=== PATIENT | male | born 1980 | race American Indian/Alaskan Native ===

== ENCOUNTER 2018-07-26 09:23 | Day surgery (SDC) | payer OTHER ==
[2018-07-26] MEDS ORDERED: VERSED ONE (09:55)
[2018-07-26] MEDS ORDERED: DIPRIVAN 10 MG/ML IV ONE ×2 (09:55→10:44)
--- NOTE | 2018-07-26 09:55 | Anesthesia Day of Surgery ---
Anesthesia Day of Surgery - Day of Surgery Patient Examined: Yes Patient H&P Reviewed: Yes Patient is NPO: Yes Beta Blockers: No
--- NOTE | 2018-07-26 09:56 | Anesthesia Consultation ---
Anesthesia Consult and Med Hx Date of service: 07/26/18 - Airway Anesthetic Teeth Evaluation: Good ROM Head & Neck: Adequate Mental/Hyoid Distance: Adequate Mallampati Class: Class III Intubation Access Assessment: Possibly Difficult - Pulmonary Exam CTA: Yes - Cardiac Exam Cardiac Exam: No Murmur - Pre-Operative Health Status ASA Pre-Surgery Classification: ASA2 Proposed Anesthetic Plan: MAC - Other Systems Hx Obesity: Yes
[2018-07-26] MEDS ORDERED: NACL 0.9% 1000 ML 1,000 ML IV SCH (10:00)
--- NOTE | 2018-07-26 10:47 | Procedure Note ---
Date of procedure: 07/26/18 Pre-op diagnosis: Abdominal Pain/ Recto-Sigmoid Thickening (per CT Scan) Post-op diagnosis: other (R/O Proctitis and Colitis (of the Recto-Sigmoid area)/ S/P Colon Surgery of the Proximal Colon/ Minor, Internal Hemorrhoid) Procedure: Colonoscopy with Biopsy Anesthesia: [facility] [place] Surgeon: LEELEE SALDAÑA Estimated blood loss: minimal Pathology: list Specimen disposition: to lab Condition: stable Disposition: same day (Avoid aspirin and NSAID for 5 days and follow up in 1 to 2 weeks ([phone]). Await for the biopsy results.)
--- NOTE | 2018-07-26 11:04 | Operative Report ---
PROCEDURE: Colonoscopy with biopsy. 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 He had a CT scan done because of persistent abdominal pain and was noted to have thickening of the rectosigmoid area. Colonoscopy was done for further assessment of the colon. DESCRIPTION OF PROCEDURE: The procedure was done after getting informed consent with MAC anesthesia. Initial rectal exam was unremarkable. Instrument was passed through the rectum onto the proximal colon, which appears to have had undergone some surgical changes. The proximal colon, transverse colon, descending colon, and sigmoid showed normal mucosa. Endoscopically, there did not appear to be any significant pathology in the sigmoid or the rectum; however, biopsies were done from this area to make sure that there was not any evidence of microscopic colitis. There was minimal bleeding from the biopsy sites and no complications associated with the procedure. The rectum showed some minor internal hemorrhoid on the retroverted view. ASSESSMENT: Abdominal pain and thickening of the rectosigmoid area per CT scan. Biopsies done to rule out for possible microscopic colitis versus proctitis, surgical changes in the proximal colon. PLAN: Plan is to wait for the biopsy results, avoid any aspirin or aspirin-related products, and follow up in the office in 1-2 weeks' time. JOB# [id number]
[2018-07-26 11:19] VITALS: BP 145/74
[2018-07-26] MEDS ORDERED: NACL 0.9% 1000 ML 1,000 ML ONE (11:34)
== END 2018-07-26 11:20 | disposition home or self-care (01) ==
LOC: GIO 09:23
DX: K63.89 Other specified diseases of intestine (principal); K64.8 Other hemorrhoids; E66.9 Obesity, unspecified; Z68.32 Body mass index [BMI] 32.0-32.9, adult; Z98.890 Other specified postprocedural states; Z79.899 Other long term (current) drug therapy
CPT/HCPCS: 45380; 88305; J2250; J2704; J7030